=== PATIENT | male | born 1945 | race Caucasian/White ===

== ENCOUNTER 2024-04-08 12:54 | Emergency (ER) | payer MEDICARE ==
[2024-04-08] MEDS ORDERED: Boostrix 0.5 ML (Tdap) VIAL (>/=7 yrs of age) ONE (13:38)
[2024-04-08] MEDS ORDERED: Bacitracin 1 PK ONE (13:59)
== END 2024-04-08 14:11 | disposition home or self-care (01) ==
LOC: MADERS 12:54
DX: S01.412A Laceration without foreign body of left cheek and temporomandibular area, initial encounter (principal); S00.12XA Contusion of left eyelid and periocular area, initial encounter; W17.89XA Other fall from one level to another, initial encounter; Z87.891 Personal history of nicotine dependence; Z55.6 Problems related to health literacy
CPT/HCPCS: 12011; 70450; 72125; 90471; 90715

== ENCOUNTER 2024-05-30 10:12 | Emergency (ER) | payer MEDICARE ==
[2024-05-30] MEDS ORDERED: dilTIAZem 25 MG/5 ML VIAL ONE (10:59)
[2024-05-30 11:21] LABS: Anisocytosis SLIGHT = 6-15 cells (100X) (0-5/hpf); Band 8 % (5-11); Eosinophils 1 % (0-10); Hematocrit 31.3 % (42.0-52.0); Hemoglobin 8.9 g/dL (14.0-18.0); Hypochromia MODERATE=16-30 cells (100X) (0-5/hpf); Lymphocytes 4 % (21-51); MDiff Complete? YES; Mean Corpuscular HGB CONC 28.5 g/dL (32.0-36.0); Mean Corpuscular Hemoglobin 22.9 pg (27.0-31.0); Mean Corpuscular Volume 80.3 fl (78.0-98.0); Mean Platelet Volume 7.4 fL (7.4-10.4); Monocytes 6 % (0-10); Neutrophil 80 % (42-75); Platelet Adequacy Comment Appears Adequate; Platelet Count 390 10x3/uL (130-400); Red Blood Cell (RBC) Count 3.89 mill/uL (4.70-6.10); White Blood Cell (WBC) Count 6.5 10x3/uL (4.8-10.8)
[2024-05-30 11:25] LABS: ALT (SGPT) 25 U/L (Less than 45); AST (SGOT) 22 U/L (11-34); Albumin 2.9 g/dL (3.1-4.5); Alkaline Phosphatase 82 U/L (40-110); Anion Gap 16 mmol/L (10-20); BUN (Urea Nitrogen) 30 mg/dL (8.4-25.7); Bilirubin, Total 0.5 mg/dL (0.3-1.2); Calc. Creatinine Clearance 0 mL/min (70-130); Calcium 8.9 mg/dL (7.8-10.44); Carbon Dioxide 27 mmol/L (23-31); Chloride 101 mmol/L (98-107); Estimated GFR 43; Globulin 4.2 g/dL (2.4-3.5); Glucose 109 mg/dL (83-110); Potassium 3.9 mmol/L (3.5-5.1); Protein, Total 7.1 g/dL (5.8-8.1); Sodium 140 mmol/L (136-145)
[2024-05-30 11:27] LABS: Troponin I 0.025 ng/mL (< 0.028)
[2024-05-30] MEDS ORDERED: dilTIAZem 125 MG/25 ML SDV ONE (11:32)
[2024-05-30] MEDS ORDERED: Furosemide 20 MG (2 mL) VIAL ONE (12:09)
== END 2024-05-30 13:35 | disposition short-term general hospital (02) ==
LOC: MADERS 10:12
DX: M79.89 Other specified soft tissue disorders (principal); I48.91 Unspecified atrial fibrillation; D64.9 Anemia, unspecified; N18.9 Chronic kidney disease, unspecified; Z87.891 Personal history of nicotine dependence; Z79.01 Long term (current) use of anticoagulants
CPT/HCPCS: 71045; 80053; 83880; 84443; 84484; 85025; 85379; 93005; 94760; 96365; 96366; 96375; 96376; J1940

== ENCOUNTER 2024-06-10 23:12 | Inpatient (IN) | payer MEDICARE ==
[2024-06-11] MEDS ORDERED: Lantiseptic Ointment 130 GM JAR TOP PRN (02:56)
[2024-06-11] MEDS: Acetaminophen 325 MG TAB PO PRN (03:36)
[2024-06-11] MEDS: Melatonin 3 MG TAB PO PRN (03:36)
[2024-06-11] MEDS: Benzocaine/Menthol 1 LOZ LOZ PO PRN (03:37)
[2024-06-11] MEDS: Furosemide 40 MG TAB PO SCH (05:28)
[2024-06-11] MEDS: Tamsulosin HCl 0.4 MG CAP PO SCH (08:41)
[2024-06-11] MEDS: Amiodarone 200 MG TAB PO SCH (08:41)
[2024-06-11] MEDS: Ferrous Sulfate 325 MG TAB PO SCH (08:41)
[2024-06-11] MEDS: Floranex 1 GM Packet PO SCH (08:41)
[2024-06-11] MEDS: Escitalopram Oxalate 10 mg Tablet PO SCH (08:41)
[2024-06-11] MEDS: Rosuvastatin 10 MG TAB PO SCH (08:41)
[2024-06-11] MEDS: Spironolactone 25 MG TAB PO SCH (08:41)
[2024-06-11] MEDS: Polyethylene Glycol 3350 17 GM Packet PO SCH (08:41)
[2024-06-11] MEDS: FLU (Fluad Triv) TS24-25 (65UP)/MF59C/PF 45 MCG/0.5 ML Syringe IM ONE (08:42)
[2024-06-11] MEDS: Lantiseptic Ointment 130 GM JAR TOP SCH (08:42)
[2024-06-11] MEDS: Rivaroxaban 15 MG TAB PO SCH (17:27)
[2024-06-11] MEDS ORDERED: Bisacodyl 10 MG SUPP PR PRN (18:00)
[2024-06-11] MEDS: Bisacodyl 5 MG TAB PO SCH (18:29)
[2024-06-11] MEDS: Senokot S 8.6-50 MG TAB PO SCH (20:04)
[2024-06-11] MEDS ORDERED: Bisacodyl 10 MG SUPP PR SCH (21:00)
[2024-06-12] MEDS ORDERED: Bisacodyl 10 MG SUPP PR PRN (09:00)
[2024-06-12] MEDS ORDERED: Acetaminophen/Codeine 30-300mg Tablet PO PRN (12:32)
[2024-06-12] MEDS: Acetaminophen/Codeine 30-300mg Tablet PO PRN (13:51)
[2024-06-13] MEDS: Furosemide 40 MG TAB PO SCH (14:32)
[2024-06-14 05:25] LABS: ALT (SGPT) 34 U/L (Less than 45); AST (SGOT) 34 U/L (11-34); Albumin 4.3 g/dL (3.1-4.5); Alkaline Phosphatase 83 U/L (40-110); Anion Gap 17 mmol/L (10-20); BUN (Urea Nitrogen) 59 mg/dL (8.4-25.7); Bilirubin, Total 1.3 mg/dL (0.3-1.2); Calc. Creatinine Clearance 49 mL/min (70-130); Calcium 9.2 mg/dL (7.8-10.44); Carbon Dioxide 25 mmol/L (23-31); Chloride 98 mmol/L (98-107); Estimated GFR 35; Globulin 2.4 g/dL (2.4-3.5); Glucose 114 mg/dL (83-110); Potassium 4.4 mmol/L (3.5-5.1); Protein, Total 6.7 g/dL (5.8-8.1); Sodium 136 mmol/L (136-145)
[2024-06-14 05:41] LABS: #Lymphocytes 0.5 thou/uL (1.20-3.40); #Monocytes 0.4 thou/uL (0.11-0.59); #Neutrophils 4.2 thou/uL (1.40-6.50); %Basophils 0.7 % (0.0-1.0); %Eosinophils 0.3 % (0.0-10.0); %Lymphocytes 9.3 % (21.0-51.0); %Neutrophils 82.7 % (42.0-75.0); Anisocytosis SLIGHT = 6-15 cells (100X) (0-5/hpf); Band 2 % (5-11); Hematocrit 23.3 % (42.0-52.0); Hemoglobin 6.6 g/dL (14.0-18.0); Hypochromia MODERATE=16-30 cells (100X) (0-5/hpf); Lymphocytes 9 % (21-51); MDiff Complete? YES; Mean Corpuscular HGB CONC 28.4 g/dL (32.0-36.0); Mean Corpuscular Hemoglobin 22.8 pg (27.0-31.0); Mean Corpuscular Volume 80.4 fl (78.0-98.0); Mean Platelet Volume 7.3 fL (7.4-10.4); Microcytosis SLIGHT = 6-15 cells (100X) (0-5/hpf); Monocytes 7 % (0-10); Neutrophil 82 % (42-75); Platelet Count 133 10x3/uL (130-400); RBC Distribution Width 26.4 % (11.5-14.5); White Blood Cell (WBC) Count 5.1 10x3/uL (4.8-10.8)
[2024-06-14] MEDS: Amiodarone 200 MG TAB PO SCH (08:10)
[2024-06-14] MEDS: diphenhydrAMINE 25 MG CAP PO SCH (13:14)
[2024-06-14] MEDS: Furosemide 40 MG (4 mL) VIAL SLOW IVP SCH (13:34)
[2024-06-14 18:02] LABS: Hematocrit 24.1 % (42.0-52.0); Hemoglobin 7.1 g/dL (14.0-18.0)
[2024-06-15 05:12] LABS: Anisocytosis MODERATE=16-30 cells (100X) (0-5/hpf); Band 2 % (5-11); Hematocrit 23.3 % (42.0-52.0); Hemoglobin 6.9 g/dL (14.0-18.0); Hypochromia MODERATE=16-30 cells (100X) (0-5/hpf); Lymphocytes 8 % (21-51); MDiff Complete? YES; Mean Corpuscular HGB CONC 29.5 g/dL (32.0-36.0); Mean Corpuscular Hemoglobin 23.8 pg (27.0-31.0); Mean Corpuscular Volume 80.6 fl (78.0-98.0); Mean Platelet Volume 8.4 fL (7.4-10.4); Microcytosis SLIGHT = 6-15 cells (100X) (0-5/hpf); Monocytes 8 % (0-10); Neutrophil 82 % (42-75); Platelet Count 126 10x3/uL (130-400); Red Blood Cell (RBC) Count 2.89 mill/uL (4.70-6.10); White Blood Cell (WBC) Count 5.7 10x3/uL (4.8-10.8)
[2024-06-15 05:14] LABS: ALT (SGPT) 32 U/L (Less than 45); AST (SGOT) 31 U/L (11-34); Albumin 4.1 g/dL (3.1-4.5); Alkaline Phosphatase 82 U/L (40-110); Anion Gap 19 mmol/L (10-20); BUN (Urea Nitrogen) 54 mg/dL (8.4-25.7); Bilirubin, Total 1.4 mg/dL (0.3-1.2); Calc. Creatinine Clearance 49 mL/min (70-130); Calcium 8.9 mg/dL (7.8-10.44); Carbon Dioxide 23 mmol/L (23-31); Chloride 99 mmol/L (98-107); Estimated GFR 35; Globulin 2.5 g/dL (2.4-3.5); Glucose 111 mg/dL (83-110); Potassium 4.5 mmol/L (3.5-5.1); Protein, Total 6.6 g/dL (5.8-8.1); Sodium 136 mmol/L (136-145)
[2024-06-15] MEDS: Acetaminophen 500 MG TAB PO PRN (14:22)
[2024-06-16 05:21] LABS: Anisocytosis MODERATE=16-30 cells (100X) (0-5/hpf); Band 2 % (5-11); Eosinophils 2 % (0-10); Hematocrit 23.1 % (42.0-52.0); Hemoglobin 6.8 g/dL (14.0-18.0); Hypochromia MODERATE=16-30 cells (100X) (0-5/hpf); Lymphocytes 5 % (21-51); MDiff Complete? YES; Mean Corpuscular HGB CONC 29.6 g/dL (32.0-36.0); Mean Corpuscular Hemoglobin 24.2 pg (27.0-31.0); Mean Corpuscular Volume 81.6 fl (78.0-98.0); Microcytosis SLIGHT = 6-15 cells (100X) (0-5/hpf); Monocytes 7 % (0-10); Neutrophil 84 % (42-75); Nucleated RBC (Manual Ct) 3 % (0); Platelet Count 125 10x3/uL (130-400); RBC Distribution Width 25.8 % (11.5-14.5); Red Blood Cell (RBC) Count 2.83 mill/uL (4.70-6.10); White Blood Cell (WBC) Count 6.1 10x3/uL (4.8-10.8)
[2024-06-16] MEDS: diphenhydrAMINE 12.5 MG/5 ML UDCUP PO SCH (15:42)
[2024-06-16] MEDS: busPIRone HCl 5 MG TAB PO SCH ×2 (15:53→21:02)
[2024-06-16] MEDS: EPOETIN ALFA-EPBX (ESRD) 10,000 UNITS/ML VIAL SC SCH (16:13)
[2024-06-16] MEDS: traZODone HCl 50 MG TAB PO PRN (21:02)
[2024-06-17 07:36] LABS: Hematocrit 26.3 % (42.0-52.0); Hemoglobin 8.1 g/dL (14.0-18.0); Mean Corpuscular HGB CONC 30.6 g/dL (32.0-36.0); Mean Corpuscular Hemoglobin 25.4 pg (27.0-31.0); Mean Corpuscular Volume 82.8 fl (78.0-98.0); Mean Platelet Volume 7.6 fL (7.4-10.4); Platelet Count 126 10x3/uL (130-400); RBC Distribution Width 24.6 % (11.5-14.5); Red Blood Cell (RBC) Count 3.18 mill/uL (4.70-6.10); White Blood Cell (WBC) Count 5.5 10x3/uL (4.8-10.8)
[2024-06-17 07:42] LABS: Anion Gap 16 mmol/L (10-20); BUN (Urea Nitrogen) 46 mg/dL (8.4-25.7); Calc. Creatinine Clearance 52 mL/min (70-130); Calcium 8.9 mg/dL (7.8-10.44); Carbon Dioxide 26 mmol/L (23-31); Chloride 99 mmol/L (98-107); Estimated GFR 38; Glucose 100 mg/dL (83-110); Potassium 4.2 mmol/L (3.5-5.1); Sodium 137 mmol/L (136-145)
[2024-06-17 12:40] LABS: Iron 20 ug/dL (65-175); Iron Binding Capacity, Total 289 mcg/dL (261-462)
[2024-06-17] MEDS: traZODone HCl 50 MG TAB PO SCH (20:58)
[2024-06-20 07:56] LABS: Hematocrit 28.3 % (42.0-52.0); Hemoglobin 8.2 g/dL (14.0-18.0); Mean Corpuscular Hemoglobin 24.7 pg (27.0-31.0); Mean Corpuscular Volume 85.3 fl (78.0-98.0); Mean Platelet Volume 9.6 fL (7.4-10.4); Platelet Count 128 10x3/uL (130-400); RBC Distribution Width 24.9 % (11.5-14.5); Red Blood Cell (RBC) Count 3.32 mill/uL (4.70-6.10); White Blood Cell (WBC) Count 3.9 10x3/uL (4.8-10.8)
[2024-06-20 07:57] LABS: Anion Gap 16 mmol/L (10-20); BUN (Urea Nitrogen) 42 mg/dL (8.4-25.7); Calc. Creatinine Clearance 46 mL/min (70-130); Calcium 8.7 mg/dL (7.8-10.44); Carbon Dioxide 25 mmol/L (23-31); Chloride 101 mmol/L (98-107); Estimated GFR 33; Glucose 87 mg/dL (83-110); Potassium 4.4 mmol/L (3.5-5.1); Sodium 138 mmol/L (136-145)
[2024-06-23 05:34] LABS: Anion Gap 15 mmol/L (10-20); BUN (Urea Nitrogen) 45 mg/dL (8.4-25.7); Calc. Creatinine Clearance 50 mL/min (70-130); Calcium 8.6 mg/dL (7.8-10.44); Carbon Dioxide 26 mmol/L (23-31); Chloride 102 mmol/L (98-107); Estimated GFR 36; Glucose 111 mg/dL (83-110); Potassium 4.3 mmol/L (3.5-5.1); Sodium 139 mmol/L (136-145)
[2024-06-26] MEDS: Furosemide 40 MG (4 mL) VIAL SLOW IVP SCH (17:00)
[2024-06-26 17:44] LABS: ALT (SGPT) 77 U/L (Less than 45); AST (SGOT) 71 U/L (11-34); Albumin 3.8 g/dL (3.1-4.5); Alkaline Phosphatase 118 U/L (40-110); Anion Gap 16 mmol/L (10-20); BUN (Urea Nitrogen) 39 mg/dL (8.4-25.7); Bilirubin, Total 0.8 mg/dL (0.3-1.2); Calc. Creatinine Clearance 50 mL/min (70-130); Calcium 8.8 mg/dL (7.8-10.44); Carbon Dioxide 27 mmol/L (23-31); Chloride 99 mmol/L (98-107); Estimated GFR 35; Globulin 3.2 g/dL (2.4-3.5); Glucose 114 mg/dL (83-110); Potassium 4.6 mmol/L (3.5-5.1); Sodium 137 mmol/L (136-145)
[2024-06-26 18:01] LABS: Anisocytosis SLIGHT = 6-15 cells (100X) (0-5/hpf); Band 3 % (5-11); Hematocrit 30.7 % (42.0-52.0); Hemoglobin 8.3 g/dL (14.0-18.0); Hypochromia MODERATE=16-30 cells (100X) (0-5/hpf); Lymphocytes 16 % (21-51); MDiff Complete? YES; Mean Corpuscular Volume 85.4 fl (78.0-98.0); Monocytes 10 % (0-10); Neutrophil 70 % (42-75); Platelet Adequacy Comment Appears Adequate; Platelet Count 138 10x3/uL (130-400); RBC Distribution Width 23.4 % (11.5-14.5); White Blood Cell (WBC) Count 3.8 10x3/uL (4.8-10.8)
[2024-06-27 05:18] LABS: Anisocytosis MODERATE=16-30 cells (100X) (0-5/hpf); Band 2 % (5-11); Eosinophils 2 % (0-10); Hematocrit 27.9 % (42.0-52.0); Hypochromia MODERATE=16-30 cells (100X) (0-5/hpf); Lymphocytes 16 % (21-51); MDiff Complete? YES; Mean Corpuscular HGB CONC 28.6 g/dL (32.0-36.0); Mean Corpuscular Hemoglobin 24.2 pg (27.0-31.0); Mean Corpuscular Volume 84.6 fl (78.0-98.0); Microcytosis SLIGHT = 6-15 cells (100X) (0-5/hpf); Monocytes 11 % (0-10); Neutrophil 68 % (42-75); Platelet Count 128 10x3/uL (130-400); RBC Distribution Width 23.6 % (11.5-14.5); White Blood Cell (WBC) Count 3.1 10x3/uL (4.8-10.8)
[2024-06-27 05:20] LABS: ALT (SGPT) 66 U/L (Less than 45); AST (SGOT) 59 U/L (11-34); Albumin 3.5 g/dL (3.1-4.5); Alkaline Phosphatase 105 U/L (40-110); Anion Gap 14 mmol/L (10-20); BUN (Urea Nitrogen) 38 mg/dL (8.4-25.7); Bilirubin, Total 0.7 mg/dL (0.3-1.2); Calc. Creatinine Clearance 50 mL/min (70-130); Calcium 8.6 mg/dL (7.8-10.44); Carbon Dioxide 28 mmol/L (23-31); Chloride 101 mmol/L (98-107); Estimated GFR 35; Globulin 2.9 g/dL (2.4-3.5); Glucose 105 mg/dL (83-110); Potassium 4.4 mmol/L (3.5-5.1); Protein, Total 6.4 g/dL (5.8-8.1); Sodium 139 mmol/L (136-145)
[2024-06-27] MEDS: Furosemide 40 MG TAB PO SCH (08:23)
[2024-06-30 05:31] LABS: Anisocytosis SLIGHT = 6-15 cells (100X) (0-5/hpf); Band 1 % (5-11); Eosinophils 2 % (0-10); Hypochromia MODERATE=16-30 cells (100X) (0-5/hpf); Lymphocytes 12 % (21-51); MDiff Complete? YES; Monocytes 14 % (0-10); Neutrophil 71 % (42-75)
[2024-06-30 05:32] LABS: Hematocrit 28.7 % (42.0-52.0); Hemoglobin 8.3 g/dL (14.0-18.0); Mean Corpuscular HGB CONC 28.8 g/dL (32.0-36.0); Mean Corpuscular Hemoglobin 24.1 pg (27.0-31.0); Mean Corpuscular Volume 83.7 fl (78.0-98.0); Mean Platelet Volume 7.7 fL (7.4-10.4); Platelet Count 144 10x3/uL (130-400); Red Blood Cell (RBC) Count 3.43 mill/uL (4.70-6.10); White Blood Cell (WBC) Count 3.6 10x3/uL (4.8-10.8)
[2024-06-30 05:36] LABS: ALT (SGPT) 68 U/L (Less than 45); AST (SGOT) 62 U/L (11-34); Albumin 3.6 g/dL (3.1-4.5); Alkaline Phosphatase 120 U/L (40-110); Anion Gap 14 mmol/L (10-20); BUN (Urea Nitrogen) 36 mg/dL (8.4-25.7); Bilirubin, Total 0.7 mg/dL (0.3-1.2); Calc. Creatinine Clearance 50 mL/min (70-130); Calcium 8.8 mg/dL (7.8-10.44); Carbon Dioxide 30 mmol/L (23-31); Chloride 99 mmol/L (98-107); Estimated GFR 36; Globulin 3.1 g/dL (2.4-3.5); Glucose 102 mg/dL (83-110); Potassium 4.3 mmol/L (3.5-5.1); Protein, Total 6.7 g/dL (5.8-8.1); Sodium 139 mmol/L (136-145)
[2024-06-30] MEDS: traZODone HCl 50 MG TAB PO SCH (20:40)
[2024-06-30] MEDS: Acetaminophen 500 MG TAB PO PRN (20:45)
[2024-07-06] MEDS: Acetaminophen 325 MG TAB PO PRN (20:45)
[2024-07-07 06:30] LABS: AST (SGOT) 45 U/L (11-34); Albumin 3.6 g/dL (3.1-4.5); Alkaline Phosphatase 122 U/L (40-110); Anion Gap 15 mmol/L (10-20); BUN (Urea Nitrogen) 32 mg/dL (8.4-25.7); Bilirubin, Total 0.8 mg/dL (0.3-1.2); Calc. Creatinine Clearance 51 mL/min (70-130); Calcium 8.7 mg/dL (7.8-10.44); Carbon Dioxide 25 mmol/L (23-31); Chloride 98 mmol/L (98-107); Estimated GFR 36; Globulin 3.4 g/dL (2.4-3.5); Glucose 90 mg/dL (83-110); Potassium 4.3 mmol/L (3.5-5.1); Sodium 134 mmol/L (136-145)
[2024-07-07 06:38] LABS: Hematocrit 29.4 % (42.0-52.0); Hemoglobin 8.7 g/dL (14.0-18.0); Mean Corpuscular HGB CONC 29.6 g/dL (32.0-36.0); Mean Corpuscular Hemoglobin 24.9 pg (27.0-31.0); Mean Corpuscular Volume 84.2 fl (78.0-98.0); Mean Platelet Volume 8.1 fL (7.4-10.4); Platelet Count 135 10x3/uL (130-400); RBC Distribution Width 22.8 % (11.5-14.5); Red Blood Cell (RBC) Count 3.49 mill/uL (4.70-6.10); White Blood Cell (WBC) Count 3.3 10x3/uL (4.8-10.8)
[2024-07-07 10:55] LABS: ALT (SGPT) 46 U/L (Less than 45)
[2024-07-08 06:14] VITALS: BMI 37.2
[2024-07-08] MEDS: Simethicone Chewable 80 MG TAB PO PRN (18:19)
[2024-07-10] MEDS: Metoprolol Tartrate 25 MG TAB PO SCH (21:06)
[2024-07-11] MEDS: Aspirin 81 mg Enteric Coated Tablet PO SCH (08:34)
[2024-07-15 05:27] LABS: Hematocrit 32.4 % (42.0-52.0); Hemoglobin 9.1 g/dL (14.0-18.0); Mean Corpuscular HGB CONC 28.2 g/dL (32.0-36.0); Mean Corpuscular Hemoglobin 23.5 pg (27.0-31.0); Mean Corpuscular Volume 83.3 fl (78.0-98.0); Platelet Count 157 10x3/uL (130-400); RBC Distribution Width 22.2 % (11.5-14.5); Red Blood Cell (RBC) Count 3.88 mill/uL (4.70-6.10); White Blood Cell (WBC) Count 5.2 10x3/uL (4.8-10.8)
[2024-07-15 05:30] LABS: Anion Gap 15 mmol/L (10-20); BUN (Urea Nitrogen) 53 mg/dL (8.4-25.7); Calc. Creatinine Clearance 40 mL/min (70-130); Calcium 8.9 mg/dL (7.8-10.44); Carbon Dioxide 27 mmol/L (23-31); Chloride 96 mmol/L (98-107); Estimated GFR 25; Glucose 112 mg/dL (83-110); Sodium 133 mmol/L (136-145)
[2024-07-15] MEDS: Furosemide 40 MG TAB PO SCH (14:08)
[2024-07-15 15:02] VITALS: BMI 38.7
[2024-07-16] MEDS: Midodrine HCl 5 MG TAB PO SCH ×2 (09:48→15:59)
[2024-07-16] MEDS: Tamsulosin HCl 0.4 MG CAP PO SCH (20:08)
[2024-07-17] MEDS: Midodrine HCl 5 MG TAB PO SCH (05:33)
[2024-07-18 08:12] VITALS: TEMP 98.3
[2024-07-18 12:25] VITALS: BP 122/81
== END 2024-07-18 21:37 | disposition short-term general hospital (02) | DRG 947 ==
LOC: MADMS 06-11
PROVIDERS: ADMIT Family Medicine; ATTEND Family Medicine
DX: R53.81 Other malaise (principal); I50.23 Acute on chronic systolic (congestive) heart failure; N17.9 Acute kidney failure, unspecified; I48.91 Unspecified atrial fibrillation; L89.152 Pressure ulcer of sacral region, stage 2; E66.01 Morbid (severe) obesity due to excess calories; Z79.01 Long term (current) use of anticoagulants; N18.30 Chronic kidney disease, stage 3 unspecified; D63.1 Anemia in chronic kidney disease; G47.00 Insomnia, unspecified; Z79.899 Other long term (current) drug therapy
CPT/HCPCS: 36415; 36430; 80048; 80053; 82728; 83540; 83550; 83880; 85025; 85027; 86850; 86900; 86901; J1940; P9016; Q0163; Q5105